=== PATIENT | female | born 1995 | race African-American/Black ===

== ENCOUNTER 2018-09-07 14:04 | Inpatient (IN) | payer OTHER ==
[2018-09-07] MEDS ORDERED: Buffered Lidocaine 1% SYRIN* 1 ML/SYRINGE INTRADERM ONE (14:50)
[2018-09-07] MEDS ORDERED: Misoprostol TAB* 100 MCG PO ONE (14:50)
[2018-09-07] MEDS ORDERED: Lactated Ringers 1000 ML Bag* 1,000 ML IV ONE (14:50)
--- NOTE | 2018-09-07 14:54 | HP ---
General Information - Reason for Visit 22 yo at 41 1/7 weeks here for postdates IOL - General Information Maternal Age: 22 Grav: 2 Para: 1 SAB: 0 IEA: 0 Estimated Due Date: 08/30/18 Determined By: LMP Gestational Age in Weeks/Days: 41 17 Maternal Blood Type and Rh: O Positive - Results this Serology/RPR Result: Non-Reactive Rubella Result: Immune HBsAg Result: Negative HIV Result: Negative GBS Culture Result: Positive Past Medical History Delivery History: Hx Uncomplicated Vaginal Delivery Pertinent Past Medical History: See Records Past Medical History Comment: Asthma Migraine Pertinent Past Surgical History: None Pertinent Family History: See Records Family History Comment: Mother: Von Willebrand's, Asthma Father: Sinus cancer, hypertension, diabetes - Antepartal Records Antepartal Records: Reviewed, Complicated by: - Obesity, appropriate weight gain this Review of Systems Constitutional: Comfortable CV Complaint: No Respiratory: Shortness of Breath: No Gastrointestinal: No Nausea/Vomiting, Normal Bowel Movement Genitourinary: No Dysuria, No Bleeding, No Leaking Fluid Musculoskeletal: No Complaint, No Epigastric Pain Neurological: No Headache, No Visual Changes Movement: Normal Exam Allergies/Adverse Reactions: Allergies No Known Allergies Allergy (Verified 12/24/15 15:51) B/P: 131/78, P: 115, RR: 18, T: 97.2 - Measurements Height: 5 ft 7 in Weight: 313 lb Weight in lbs: [phone] Body Mass Index (BMI): 49.0 Pre- Weight: 314 lb Weight Gained This : -1 lbs and 0 ozs - Exam Breast: Breast Exam Deferred CVA: No CVA Tenderness Extremities: Edema - BLE 2+ non-pitting edema Heart: Normal Rhythm/Heart Sounds HEENT: No Significant Findings Lungs: Clear Bilaterally Reflexes: DTR 2+ Targeted Exam Findings See L&D Outpatient Visit Provider Note for Findings: N/A Estimated Weight: 8.5 lb by mat's. Cervical Exam: Fingertip Effacement: 50% Station: -2 Presenting Part: Vertex Bleeding/Discharge: None EFM Findings - External Monitor Findings Baseline Heart Rate: 140 External Monitor Findings: Accelerations Present, No Pattern of Variable or Late Decelerations, Variability Moderate, Baseline Stable Contractions: None Assessment/Plan - Assessment A: IUP at 41 1/7 weeks Category I FHR VE: fintertip/50/-2, posterior, soft. Hdez score: 5 GBS positive P: Discussed cervidil vs. misoprostol for ripening of unfavorable cervix. She prefers oral misoprostol at this time. Initiate GBS prophylaxis once active or ROM Will re-assess in 3-4 hours or sooner as indicated Anticipate SVB - Obstetrical Risk Factors Obstetrical Risk Factors: GBS Positive, Post-Dates, Obesity - Plan Plan: Cervical Ripening, Antibiotic Prophylaxis - Date/Time of Admission Date of Admission: 09/07/18 Time of Admission: 15:00
[2018-09-07] MEDS ORDERED: Lactated Ringers 1000 ML Bag* 1,000 ML IV SCH ×2 (15:00→22:00)
[2018-09-07] MEDS ORDERED: Penicillin G Potassium IV* 5,000,000 UNITS in NS 0.9% 100 ML* 100 ML IVPB ONE (16:23)
--- NOTE | 2018-09-07 19:28 | PN ---
Progress Note - Progress Note Date of Service: 09/07/18 Note: Mod contractions every 3-5 mins FHT : baseline 150, mod variability, accels present Cervix: 4cm/80%, vtx -1 AROM: clear fluid Will continue to observe, pitocin augmentation prn
[2018-09-07 19:52] LABS: ABS Basophils 0 10^3/ul (0-0.2); ABS Eosinophils 0 10^3/ul (0-0.6); ABS Lymphocytes 1.9 10^3/ul (1.0-4.8); ABS Monocytes 0.9 10^3/ul (0-0.8); ABS Neutrophils 6.1 10^3/ul (1.5-7.7); ABS Nucleated RBC 0 10^3/ul; Eosinophil % 0.5 %; Hematocrit 37 % (33-41); Hemoglobin 12.5 g/dL (12.0-16.0); Lymphocyte % 21.4 %; Mean Corpuscular HGB Conc 34 g/dL (31-36); Mean Corpuscular Hemoglobin 30 pg (27-31); Mean Corpuscular Volume 88 fL (80-97); Mean Platelet Volume 9.2 fL (7.4-10.4); Nucleated Red Blood Cells % 0.2; Platelet Count 180 10^3/uL (150-450); Red Cell Distribution Width 14 % (10.5-15)
--- NOTE | 2018-09-07 21:16 | PN ---
Progress Note - Progress Note Date of Service: 09/07/18 Note: Uncomfortable Cervix: 8cm, 90%, 0station Will try nitrous oxide
[2018-09-07] MEDS: Oxytocin in LR* 20 UNITS/1,000 ML BAG IVPB ONE ×2 (21:33→22:59)
[2018-09-07] MEDS ORDERED: Ibuprofen TAB* 600 MG PO PRN (21:54)
[2018-09-07] MEDS ORDERED: Witch Hazel PAD* JAR TOPICAL PRN (21:54)
[2018-09-07] MEDS ORDERED: Dibucaine 1% 28.35 GM TUBE PR PRN (21:54)
[2018-09-07] MEDS ORDERED: Misoprostol TAB* 200 MCG PR ONE (21:54)
[2018-09-07] MEDS ORDERED: Glycerin ADULT SUPP PR PRN (21:54)
[2018-09-07] MEDS ORDERED: Oxytocin in LR* 20 UNITS/1,000 ML BAG IVPB SCH (22:00)
[2018-09-07] MEDS: Acetaminophen TAB* 325 MG PO PRN (22:08)
--- NOTE | 2018-09-07 22:08 | PROCNOTE ---
[facility] OB: Delivery Note - Delivery A Date of : 09/07/18 Time of : 21:29 [place] Sex: Female Score 1 Minute: 5 Score 5 Minutes: 9 Gestational Age in Weeks and Days at Delivery: 41 Weeks and 1 Days Delivery Method: Spontaneous Vaginal Labor: Induced Did Patient attempt ?: N/A, No Previous Amniotic Fluid: Clear Estimated Blood Loss: 600 Anesthesia/Analgesia: Nitrous-Labor Delivered By: Aminata Lucio - Nursery Level of Nursery: Regular/Bedside - Perineum Perineal Injury: None/Intact - Events Delivery Events of Note: Partial Course of Antibiotics, Post- Bleeding - Meds Given - Additional Delivery Notes Additional Delivery Notes: SVB LFC, OA over intact perineum, 11 min 2nd stage. Infant pink with stimulation , bulb suction. Placenta brandt. Uterine atony with PPH, controlled with IV pitocin, massage, Cytotec 800mcg per rectum. EBL 600cc. Placenta with velamentous lateral insertion. Mother and baby stable.
[2018-09-07] MEDS ORDERED: Penicillin G Potassium IV* 2,500,000 UNITS in NS 0.9% 100 ML* 100 ML IVPB SCH (23:30)
[2018-09-08] MEDS: Acetaminophen TAB* 325 MG PO PRN ×2 (03:54→10:54)
[2018-09-08 08:51] LABS: Hematocrit 35 % (33-41); Hemoglobin 11.9 g/dL (12.0-16.0); Mean Corpuscular HGB Conc 34 g/dL (31-36); Mean Corpuscular Hemoglobin 29 pg (27-31); Mean Corpuscular Volume 87 fL (80-97); Mean Platelet Volume 8.9 fL (7.4-10.4); Platelet Count 160 10^3/uL (150-450); Red Blood Count 4.07 10^6 /uL (3.70-4.87); Red Cell Distribution Width 14 % (10.5-15); White Blood Count 11.4 10^3/uL (3.5-10.8)
[2018-09-08] MEDS ORDERED: Ferrous Gluconate TAB* 324 MG TAB PO SCH (09:00)
[2018-09-08] MEDS: Docusate CAP* 100 MG PO SCH ×3 (10:54→22:01)
[2018-09-09 08:44] VITALS: BP 117/72
[2018-09-09] MEDS: Docusate CAP* 100 MG PO SCH (09:02)
[2018-09-09] MEDS: Acetaminophen TAB* 325 MG PO PRN (10:07)
== END 2018-09-09 19:41 | disposition home or self-care (01) | DRG 560 ==
LOC: MCHOBOUT 14:04 → MCHOB 14:37
PROVIDERS: ADMIT Midwife; ATTEND Midwife
PROC: 10E0XZZ Delivery of Products of Conception, External Approach (ICD-10-PCS; principal; 2018-09-07)
PROC: 4A1HXCZ Monitoring of Products of Conception, Cardiac Rate, External Approach (ICD-10-PCS; 2018-09-07)
PROC: 10907ZC Drainage of Amniotic Fluid, Therapeutic from Products of Conception, Via Natural or Artificial Opening (ICD-10-PCS; 2018-09-07)
PROC: 3E0P7VZ Introduction of Hormone into Female Reproductive, Via Natural or Artificial Opening (ICD-10-PCS; 2018-09-07)
DX: O48.0 Post-term pregnancy (principal); O72.1 Other immediate postpartum hemorrhage; Z37.0 Single live birth; O99.52 Diseases of the respiratory system complicating childbirth; Z3A.41 41 weeks gestation of pregnancy; O99.824 Streptococcus B carrier state complicating childbirth; J45.909 Unspecified asthma, uncomplicated; O43.123 Velamentous insertion of umbilical cord, third trimester; O77.0 Labor and delivery complicated by meconium in amniotic fluid
CPT/HCPCS: 36415; 85025; 85027; 86850; 86900; 86901; A9270-GY; J2540; S0191

== ENCOUNTER 2019-04-17 17:17 | Emergency (ER) | payer OTHER ==
[2019-04-17 18:32] VITALS: BP 121/62
--- NOTE | 2019-04-17 18:33 | UC ---
FLU HPI - HPI Summary HPI Summary: 23 yo female presents with flu like symptoms. She tells me that yesterday she developed feeling feverish, body aches, and fatigue. Symptoms have persisted into this morning. Has not taken her temperature. Has been taking mucinex OTC for her symptoms with no change. She has a hx of asthma, but is out of her albuterol inhaler and is asking for a refill of this today. She denies sinus symptoms, sore throat, cough, SOB, chest pain, abdominal pain, vomiting, dysuria. LMP was 1 week ago - History of Current Complaint Chief Complaint: UCRespiratory Stated Complaint: ACHES, COUGH, AND CHEST CONGESTION Time Seen by Provider: 04/17/19 18:33 Hx Obtained From: Patient Hx Last Menstrual Period: <1 week ago Onset/Duration: Sudden Onset Severity Currently: Moderate Severity Initially: Moderate Pain Intensity: 8 Pain Scale Used: 0-10 Numeric - Allergy/Home Medications Allergies/Adverse Reactions: Allergies Allergy/AdvReac Type Severity Reaction Status Date / Time tioconazole Allergy redness, Verified 04/17/19 18:32 [From Monistat 1 itching, (tioconazole)] discharge Home Medications: Home Medications guaiFENesin ER TAB [Mucinex*] 1 tab PO ONCE PRN 04/17/19 [History Confirmed ] PMH/Surg Hx/FS Hx/Imm Hx Respiratory History: Asthma - Surgical History Surgical History: None - Family History Known Family History: Positive: None - Social History Occupation: Student Lives: Dormitory/Roommates Alcohol Use: Occasionally Substance Use Type: None Smoking Status (MU): Never Smoked Tobacco Have You Smoked in the Last Year: No Household Exposure Type: Cigarettes - Immunization History Most Recent Influenza Vaccination: 02/2018 Most Recent Tetanus Shot: unk Most Recent Pneumonia Vaccination: none Vaccination Up to Date: Yes Review of Systems All Other Systems Reviewed And Are Negative: No Constitutional: Positive: Fever, Fatigue, Other - Body aches Skin: Positive: Negative Eyes: Positive: Negative ENT: Positive: Negative Respiratory: Positive: Negative Cardiovascular: Positive: Negative Gastrointestinal: Positive: Negative Neurological: Positive: Negative Psychological: Positive: Negative Physical Exam - Summary Physical Exam Summary: GENERAL: NAD. WDWN. No pain distress. SKIN: No rashes, sores, lesions, or open wounds. HEENT: Head: AT/NC Eyes: EOM intact. Conjunctiva clear without inflammation or discharge. Ears: Hearing grossly normal. TMs intact, no bulging, erythema, or edema. Nose: Nasal mucosa pink and moist. NTTP maxillary and frontal sinus. Throat: Posterior oropharynx without exudates, erythema, or tonsillar enlargement. Uvula midline. NECK: Supple. Nontender. No lymphadenopathy. CHEST: CTAB. No accessory muscle use. Breathing comfortably and in no distress. CV: RRR. Pulses intact. Cap refill <2seconds NEURO: Alert. PSYCH: Age appropriate behavior. Triage Information Reviewed: Yes Vital Signs: Initial Vital Signs Temp 98.7 F 04/17/19 18:28 Pulse 85 04/17/19 18:28 Resp 16 04/17/19 18:28 BP 121/62 04/17/19 18:28 Pulse Ox 99 04/17/19 18:28 Laboratory Tests 04/17/19 18:48 Influenza A (Rapid) Negative Influenza B (Rapid) Negative Vital Signs Reviewed: Yes Flu Course/Dx - Course Course Of Treatment: POC flu negative. Suspect viral illness. Advised to continue supportive care and f/u if symptoms do not improve within 5-7 days - Differential Dx/Diagnosis Provider Diagnosis: Flu-like symptoms Discharge ED - Sign-Out/Discharge Documenting (check all that apply): Patient Departure All imaging exams completed and their final reports reviewed: No Studies - Discharge Plan Condition: Stable Disposition: HOME Prescriptions: Albuterol HFA INHALER* [Ventolin HFA Inhaler*] 1 puff INH Q6H PRN #1 mdi PRN Reason: Sob/Wheezing Patient Education Materials: Viral Syndrome (ED) Referrals: No Primary Care Phys,NOPCP [Primary Care Provider] - Additional Instructions: Your symptoms are likely from a viral infection. Viral infections do not respond to antibiotics and are limited to the treatment of symptoms. Viral infections typically run their course in 7-10 days. Drink plenty of fluids, especially if you are running any fever. Use salt water gargles several times a day. Take over the counter acetaminophen (Tylenol) or ibuprofen (Advil, Motrin) according to directions as needed for pain or fever. You may also use Chloraseptic spray or Cepacol lonzenges according to directions which contain a numbing medication and can provide some temporary relief from a sore throat. Return here or follow up with your primary care provider in 7 days if symptoms persist. - Billing Disposition and Condition Condition: STABLE Disposition: Home
[2019-04-17 18:59] LABS: Influenza A Molecular NEGATIVE (Negative); Influenza B Molecular NEGATIVE (Negative)
== END 2019-04-17 19:18 | disposition home or self-care (01) ==
LOC: UCEAST 17:17
DX: R50.9 Fever, unspecified (principal); R53.83 Other fatigue; R09.89 Other specified symptoms and signs involving the circulatory and respiratory systems; R52 Pain, unspecified; J45.909 Unspecified asthma, uncomplicated; Z88.8 Allergy status to other drugs, medicaments and biological substances
CPT/HCPCS: 99212; G0463